=== PATIENT | female | born 1995 | race Caucasian/White ===

== ENCOUNTER 2017-11-21 06:38 | Emergency (ER) | payer OTHER ==
[2017-11-21 07:51] LABS: Absolute Lymphocytes (CBC) 2.1 K/uL (0.7-4.9); Absolute Monocytes 0.5 K/uL (0.1-1.3); Absolute Neutrophil 5.3 K/uL (1.8-8.0); Eosinophils % 5.8 % (0-4.4); Hematocrit 41.6 % (36.0-45.0); Lymphocytes % 24.7 % (15.3-44.8); MCV 84.4 fL (80-100); MPV 8.7 fL (7.6-11.3); Monocytes % 5.9 % (3.3-12.3); RBC Red Blood Cell Count 4.93 M/uL (3.86-4.86)
[2017-11-21 08:06] LABS: Urine Bacteria <20 /HPF (<20); Urine Culture Reflex Order NOT NEEDED; Urine RBC NONE SEEN /HPF (NONE SEEN)
[2017-11-21 08:11] LABS: BUN Blood Urea Nitrogen 9 mg/dL (6-20); Bicarbonate 25 mEq/L (21-31); Glucose Level 99 mg/dL (65-120); Potassium 3.7 mEq/L (3.6-5.0); Sodium Level 136 mEq/L (135-145)
[2017-11-21 10:10] LABS: Urine Blood NEGATIVE (NEG); Urine Glucose NEGATIVE (NEG); Urine Protein NEGATIVE (NEG); Urine Specific Gravity <1.005 (1.005-1.030)
[2017-11-21] MEDS ORDERED: KETOROLAC 30 MG/ML INJ ONE (11:13)
--- NOTE | 2017-11-21 11:28 | RAD REPORT ---
EXAM DESCRIPTION: US - Transvaginal Study Probe - 11/21/2017 10:08 am CLINICAL HISTORY: Pelvic pain, abdominal pain Preliminary findings provided at the time of the study. COMPARISON: None. TECHNIQUE: Endovaginal sonography was performed. FINDINGS: No myometrial mass identifiable. Moderate amount of free fluid is present in the cul-de-sa c is well is adjacent to the right ovary. Nabothian cyst is present. Endometrium is heterogeneous but no discrete endometrial mass or polyp seen. The endometrium - myometrium interface is preserved. End ometrial stripe is 9 mm in thickness. No dominant solid or cystic right ovarian or right adnexal find ing. Largest cyst on the right is 9 mm. A 16 millimeter collapsed or involuting left ovarian cyst is present. IMPRESSION: Collapsed or involuting left ovarian cyst. No dominant solid or cystic ovarian or adnexa l finding. Moderate free fluid in the cul-de-sac. This is anechoic and not suspected to be hemorrhagic. Endometrial stripe is somewhat heterogeneous but no discrete mass or polyp identifiable.
--- NOTE | 2017-11-21 11:28 | RAD REPORT ---
EXAM DESCRIPTION: CT - Abdomen Pelvis W Contrast - 11/21/2017 10:43 am CLINICAL HISTORY: Abdominal pain with suprapubic pain since yesterday COMPARISON: October ultrasound TECHNIQUE: Computed axial tomography of the abdomen pelvis was obtained. 100 cc Isovue-300 was admin istered intravenously. Oral contrast was not requested which limits evaluation of bowel. All CT scans are performed using dose optimization technique as appropriate and may include automated exposure control or mA/KV adjustment according to patient size. FINDINGS: The liver, spleen, pancreas, adrenal and kidneys appear unremarkable. There is no evidence of diverticulitis. A 17 millimeter irregularly shaped right ovarian cyst is pres ent with a small to moderate amount of free fluid. IMPRESSION: The 17 millimeter irregularly shaped right ovarian cyst with a small to moderate amount of free fluid probably has recently ruptured
--- NOTE | 2017-11-21 11:33 | ER ---
Nurse's Notes [facility] Name: Chitra Ramírez Age: 22 yrs Sex: Female : 1995 Arrival Date: 11/21/2017 Time: 06:42 Bed 13 Private MD: Diagnosis: Other ovarian cysts Presentation: 11/21 07:03 Presenting complaint: Patient states: suprapubic pain that began yesterday. Denies ss fever. Transition of care: patient was not received from another setting of care. Onset of symptoms was November 20, 2017. Initial Sepsis Screen: Does the patient meet any 2 criteria? No. Patient's initial sepsis screen is negative. Does the patient have a suspected source of infection? No. Patient's initial sepsis screen is negative. Care prior to arrival: None. 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 - Social history:: Smoking status: Patient/guardian denies using tobacco. Screenin:30 Abuse screen: Denies threats or abuse. Denies injuries from another. Nutritional jl7 screening: No deficits noted. Tuberculosis screening: No symptoms or risk factors identified. Fall Risk IV access (20 points). Total Car[place]illo Fall Scale indicates No Risk (0-24 pts). Assessment: 07:30 General: Appears in no apparent distress. uncomfortable, Behavior is calm, cooperative, jl7 appropriate for age. Pain: Complains of pain in suprapubic area Pain currently is 3 out of 10 on a pain scale. at worst was 8 out of 10 on a pain scale. Quality of pain is described as pressure, Pain began 1 day ago. Is intermittent, Alleviated by rest, Aggravated by increased activity, repositioning. Neuro: Level of Consciousness is awake, alert, obeys commands. Cardiovascular: Patient's skin is warm and dry. Respiratory: Airway is patent Respiratory effort is even, unlabored, Respiratory pattern is regular, symmetrical. GI: No signs and/or symptoms were reported involving the gastrointestinal system. : Urine is clear, Reports pelvic pain, "I get a little relief right after I pee then the pain comes back.". EENT: No signs and/or symptoms were reported regarding the EENT system. Derm: Skin is pink, warm \\T\\ dry. Musculoskeletal: No signs and/or symptoms reported regarding the musculoskeletal system. 08:34 Reassessment: No changes from previously documented assessment. Patient and/or family jl7 updated on plan of care and expected duration. Pain level reassessed. Patient is alert, oriented x 3, equal unlabored respirations, skin warm/dry/pink. 09:30 Reassessment: Patient and/or family updated on plan of care and expected duration. Pain jl7 level reassessed. Patient is alert, oriented x 3, equal unlabored respirations, skin warm/dry/pink. 10:30 Reassessment: Patient and/or family updated on plan of care and expected duration. Pain jl7 level reassessed. Patient is alert, oriented x 3, equal unlabored respirations, skin warm/dry/pink. 11:30 Reassessment: Patient and/or family updated on plan of care and expected duration. Pain jl7 level reassessed. Patient is alert, oriented x 3, equal unlabored respirations, skin warm/dry/pink. Patient states feeling better. Vital Signs: 07:04 BP 143 / 93; Pulse 87; Resp 15; Temp 98.7(O); Pulse Ox 99% on R/A; Weight 83.91 kg; Height 5 ft. 6 in. (167.64 cm); Pain 4/10; 07:51 BP 117 / 85; Pulse 82; Resp 16; Pulse Ox 99% on R/A; 5 08:30 BP 111 / 68; Pulse 69; Resp 16; Pulse Ox 100% ; Pain 3/10; jl7 09:00 BP 109 / 67; Pulse 67; Resp 16; Pulse Ox 99% ; jl7 10:00 BP 110 / 79; Pulse 74; Resp 16; Pulse Ox 100% ; jl7 11:05 BP 122 / 62; Pulse 78; Resp 16 S; Pulse Ox 100% on R/A; jl7 07:04 Body Mass Index 29.86 (83.91 kg, 167.64 cm) ED Course: 06:42 Patient arrived in ED. al2 06:58 Tonya Meraz FNP-C is [facility]. kb 06:58 Boni Martinez MD is Attending Physician. kb 07:03 Triage completed. ss 07:04 Arm band placed on right wrist. ss 07:25 Elizabeth Polk, CONSTANCE is Primary Nurse. jl7 07:41 Initial lab(s) drawn, by ga, sent to lab. Urine collected: clean catch specimen, clear. mh5 Inserted saline lock: 20 gauge in right antecubital area, using aseptic technique. Blood collected. 07:42 Patient has correct armband on for positive identification. Placed in gown. Bed in low mh5 position. Side rails up X 1. Adult w/ patient. Warm blanket given. Pulse ox on. NIBP on. 07:42 Test Serum, Qualitat Sent. mh5 07:42 Basic Metabolic Panel Sent. mh5 07:42 CBC with Automated Diff Sent. mh5 07:42 Urine Microscopic Only Sent. mh5 07:43 Urine --Ancillary (enter results) Sent. mh5 07:43 Urine Dipstick--Ancillary (enter results) Sent. mh5 07:43 Test, Serum Sent. mh5 07:43 Basic Metabolic Panel Sent. mh5 07:43 CBC with Diff Sent. mh5 07:58 Urine Microscopic Only Sent. mh5 07:58 Test Serum, Qualitat Sent. mh5 07:59 Basic Metabolic Panel Sent. mh5 09:40 Patient taken to ultrasound. aa4 09:51 US Transvaginal Study (Probe) In Process Unspecified. EDMS 09:57 Patient moved back from ultrasound. aa4 10:43 CT Abd/Pelvis - W/Contrast In Process Unspecified. EDMS 12:08 No provider procedures requiring assistance completed. IV discontinued, intact, jl7 bleeding controlled, No redness/swelling at site. Pressure dressing applied. Administered Medications: 11:21 Drug: TORadol 30 mg Route: IVP; Site: right antecubital; jl7 11:35 Follow up: Response: No adverse reaction jl7 Outcome: 11:33 Discharge ordered by . kb 12:08 Discharged to home ambulatory. jl7 12:08 Condition: stable 12:08 Discharge instructions given to patient, Instructed on discharge instructions, follow up and referral plans. medication usage, Demonstrated understanding of instructions, follow-up care, medications, Prescriptions given X 1. 12:09 Patient left the ED. jl7 Signatures: Dispatcher [employer] EDMS Tonya Meraz, ZOO CARETAKER-C ZOO CARETAKER-Hailey Somers aa4 Lorena Tavarez, RN RN Steph Sandy Elizabeth Batista RN RN jl7 Ariela Miguel
--- NOTE | 2017-11-21 11:34 | EDPHYS ---
Physician Documentation [facility] Name: Chitra Ramírez Age: 22 yrs Sex: Female : 1995 Arrival Date: 11/21/2017 Time: 06:42 Bed 13 Private MD: ED Physician Boni Martinez HPI: 11/21 07:48 This 22 yrs old Female presents to ER via Ambulatory with complaints of kb Pelvic Problem. 07:48 The patient presents with pelvic pain, that is located in/on the suprapubic area, the kb pain is described as moderate. Onset: The symptoms/episode began/occurred this morning. Modifying factors: The symptoms are alleviated by remaining still, the symptoms are aggravated by movement, pressure. Associated signs and symptoms: The patient has no apparent associated signs or symptoms. Severity of symptoms: At their worst the symptoms were moderate, in the emergency department the symptoms are unchanged. The patient has not experienced similar symptoms in the past. The patient has not recently seen a physician. Pt reports pelvic pain that started this morning, worse with movement. Denies urinary symptoms, vaginal discharge/bleeding. States she took out her own IUD a couple of months ago, is not on any control at this time. LMP was this month and normal. . 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 - Social history:: Smoking status: Patient/guardian denies using tobacco. ROS: 07:37 Constitutional: Negative for fever, chills, and weight loss, Cardiovascular: Negative kb for chest pain, palpitations, and edema, Respiratory: Negative for shortness of breath, cough, wheezing, and pleuritic chest pain, Abdomen/GI: Negative for abdominal pain, nausea, vomiting, diarrhea, and constipation, MS/Extremity: Negative for injury and deformity, Skin: Negative for injury, rash, and discoloration, Neuro: Negative for headache, weakness, numbness, tingling, and seizure. 07:37 : Positive for pelvic pain. Exam: 07:37 Constitutional: This is a well developed, well nourished patient who is awake, alert, kb and in no acute distress. Head/Face: Normocephalic, atraumatic. Chest/axilla: Normal chest wall appearance and motion. Nontender with no deformity. No lesions are appreciated. Cardiovascular: Regular rate and rhythm with a normal S1 and S2. No gallops, murmurs, or rubs. Normal PMI, no JVD. No pulse deficits. Respiratory: Lungs have equal breath sounds bilaterally, clear to auscultation and percussion. No rales, rhonchi or wheezes noted. No increased work of breathing, no retractions or nasal flaring. Back: No spinal tenderness. No costovertebral tenderness. Full range of motion. Skin: Warm, dry with normal turgor. Normal color with no rashes, no lesions, and no evidence of cellulitis. MS/ Extremity: Pulses equal, no cyanosis. Neurovascular intact. Full, normal range of motion. Neuro: Awake and alert, GCS 15, oriented to person, place, time, and situation. Cranial nerves II-XII grossly intact. Motor strength 5/5 in all extremities. Sensory grossly intact. Cerebellar exam normal. Normal gait. 07:37 Abdomen/GI: Inspection: abdomen appears normal, Bowel sounds: normal, in all quadrants, Palpation: soft, in all quadrants, nontender, in the right upper quadrant and left upper quadrant, mild abdominal tenderness, in the right lower quadrant and left lower quadrant, moderate abdominal tenderness, in the suprapubic area. Vital Signs: 07:04 BP 143 / 93; Pulse 87; Resp 15; Temp 98.7(O); Pulse Ox 99% on R/A; Weight 83.91 kg; Height 5 ft. 6 in. (167.64 cm); Pain 4/10; 07:51 BP 117 / 85; Pulse 82; Resp 16; Pulse Ox 99% on R/A; 5 08:30 BP 111 / 68; Pulse 69; Resp 16; Pulse Ox 100% ; Pain 3/10; jl7 09:00 BP 109 / 67; Pulse 67; Resp 16; Pulse Ox 99% ; jl7 10:00 BP 110 / 79; Pulse 74; Resp 16; Pulse Ox 100% ; jl7 11:05 BP 122 / 62; Pulse 78; Resp 16 S; Pulse Ox 100% on R/A; jl7 07:04 Body Mass Index 29.86 (83.91 kg, 167.64 cm) ss MDM: 07:09 Patient medically screened. kb 07:48 Data interpreted: Pulse oximetry: on room air is 99 %. Interpretation: normal. kb 07:48 Data reviewed: vital signs, nurses notes. kb 11:33 Counseling: I had a detailed discussion with the patient and/or guardian regarding: the kb historical points, exam findings, and any diagnostic results supporting the discharge/admit diagnosis, lab results, radiology results, the need for outpatient follow up, an OB/Gyne specialist, to return to the emergency department if symptoms worsen or persist or if there are any questions or concerns that arise at home. 11/21 07:20 Order name: Urine Dipstick--Ancillary (enter results); Complete Time: 10:20 mw2 11/21 07:20 Order name: Urine --Ancillary (enter results); Complete Time: 10:20 mw2 11/21 07:23 Order name: CBC with Diff 11/21 07:23 Order name: Basic Metabolic Panel 11/21 07:23 Order name: Test, Serum kb 11/21 07:23 Order name: Urine Microscopic Only; Complete Time: 08:11 kb 11/21 07:23 Order name: IV Start; Complete Time: 07:43 kb 11/21 07:23 Order name: CBC with Automated Diff; Complete Time: 07:59 EDMS 11/21 07:23 Order name: Basic Metabolic Panel; Complete Time: 09:09 EDMS 11/21 07:23 Order name: Test Serum, Qualitat; Complete Time: 09:09 EDMS 11/21 09:10 Order name: US Transvaginal Study (Probe); Complete Time: 11:29 kb 11/21 10:09 Order name: CT Abd/Pelvis - W/Contrast; Complete Time: 11:29 kb Administered Medications: 11:21 Drug: TORadol 30 mg Route: IVP; Site: right antecubital; jl7 11:35 Follow up: Response: No adverse reaction jl7 Disposition: 16:36 Co-signature as Attending Physician, Boni Martinez MD. rn Disposition: 11/21/17 11:33 Discharged to Home. Impression: Other ovarian cysts. - Condition is Stable. - Discharge Instructions: Ovarian Cyst, [id number]. - Prescriptions for Diclofenac Sodium 75 mg Oral Tablet, Delayed Release (E.C.) - take 1 tablet by ORAL route 2 times per day As needed; 30 tablet. - Medication Reconciliation Form, Thank You Letter, Antibiotic Education, Prescription Opioid Use form. - Follow up: Emergency Department; When: As needed; Reason: Worsening of condition. Follow up: Private Physician; When: 2 - 3 days; Reason: Recheck today's complaints, Continuance of care, Re-evaluation by your physician. Signatures: Dispatcher [employer] EDTonya Nevarez, CLINICAL PHARMACOLOGIST-C CLINICAL PHARMACOLOGIST-Boni Devine MD MD rn Corby, Lorena RN RN ss Elizabeth Polk RN RN jl7
== END 2017-11-21 12:09 | disposition home or self-care (01) ==
LOC: ER 06:38
DX: N83.299 Other ovarian cyst, unspecified side (principal)
CPT/HCPCS: 36415; 74177; 76830; 80048; 81003; 81015; 81025; 84703; 85025; 96374; 99284; Q9967

== ENCOUNTER 2017-12-25 10:30 | Emergency (ER) | payer OTHER, SELFPAY ==
--- NOTE | 2017-12-25 11:16 | ER ---
Nurse's Notes [facility] Name: Chitra Ramírez Age: 22 yrs Sex: Female : 1995 Arrival Date: 12/25/2017 Time: 10:33 Bed 23 Private MD: None, None Diagnosis: Cough;Acute upper respiratory infection, unspecified Presentation: 12/25 10:36 Presenting complaint: Patient states: Nonproductive cough, pain with cough, chills, ss decreased appetite, and fever x 4 days. TMAX 102.3. Transition of care: patient was not received from another setting of care. Onset of symptoms is unknown. Care prior to arrival: None. 10:36 Method Of Arrival: Ambulatory ss 10:36 Acuity: ORALIA 3 ss 11:35 Risk Assessment: Do you want to hurt yourself or someone else? Patient reports no aj1 desire to harm self or others. Initial Sepsis Screen: Does the patient meet any 2 criteria? No. Patient's initial sepsis screen is negative. Does the patient have a suspected source of infection? No. Patient's initial sepsis screen is negative. 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 - Ebola Screening: : No symptoms or risks identified at this time. Screenin:55 Abuse screen: Denies threats or abuse. Denies injuries from another. Nutritional aj1 screening: No deficits noted. Tuberculosis screening: No symptoms or risk factors identified. Assessment: 10:55 General: Appears in no apparent distress. comfortable, Behavior is calm, cooperative, aj1 appropriate for age. Pain: Denies pain. Neuro: Level of Consciousness is awake, alert, obeys commands, Oriented to person, place, time, situation, Speech is normal, Facial symmetry appears normal. Cardiovascular: Heart tones S1 S2 present Patient's skin is warm and dry. Respiratory: Reports cough that is persistent for the past 3 days "feels like rubbing in my chest when I try to breathe" Airway is patent Respiratory effort is even, unlabored, Respiratory pattern is regular, symmetrical, Breath sounds are clear bilaterally. GI: No signs and/or symptoms were reported involving the gastrointestinal system. Patient currently denies diarrhea, nausea, vomiting. : No signs and/or symptoms were reported regarding the genitourinary system. EENT: No signs and/or symptoms were reported regarding the EENT system. Denies nasal congestion, nasal discharge. Derm: No signs and/or symptoms reported regarding the dermatologic system. Skin is pink, warm \\T\\ dry. normal. Musculoskeletal: No signs and/or symptoms reported regarding the musculoskeletal system. Circulation, motion, and sensation intact. Vital Signs: 10:37 BP 136 / 86; Pulse 122; Resp 18; Temp 98.9; Pulse Ox 96% on R/A; Weight 88.45 kg; ss Height 5 ft. 6 in. (167.64 cm); Pain 2/10; 11:34 Pulse 106; Resp 16; Pulse Ox 98% on R/A; aj1 10:37 Body Mass Index 31.47 (88.45 kg, 167.64 cm) ED Course: 10:33 Patient arrived in ED. sb2 10:33 None, None is Private Physician. sb2 10:37 Triage completed. 10:38 Arm band placed on left wrist. 10:43 Pérez Rosales MD is Attending Physician. [facility] 10:54 Angelina Hernandez, RN is Primary Nurse. aj1 10:55 Patient has correct armband on for positive identification. Bed in low position. Call aj1 light in reach. Side rails up X 1. 10:55 No provider procedures requiring assistance completed. aj1 11:34 Patient did not have IV access during this emergency room visit. aj1 Administered Medications: 11:34 Drug: Zithromax 500 mg Route: PO; aj1 11:35 Follow up: Response: No adverse reaction aj1 Outcome: 11:15 Discharge ordered by . [facility] 11:34 Discharged to home ambulatory. aj1 11:34 Condition: good 11:34 Discharge instructions given to patient, Instructed on discharge instructions, follow up and referral plans. no drinking with medication, no driving heavy equipment, medication usage, Demonstrated understanding of instructions, follow-up care, medications, Prescriptions given X 2. 11:35 Patient left the ED. aj1 Signatures: Angelina Hernandez, RN RN aj1 Pérez Rosales MD MD cha Smirch, Shelby, RN RN Ashley Mahan RN RN hb Billeau, Sheri sb2 Corrections: (The following items were deleted from the chart) 11:11 10:46 11.1 kg Measured; BMI: 3.95; hb dm5
--- NOTE | 2017-12-25 11:16 | EDPHYS ---
Physician Documentation [facility] Name: Chitra Ramírez Age: 22 yrs Sex: Female : 1995 Arrival Date: 12/25/2017 Time: 10:33 Bed 23 Private MD: None, None ED Physician Pérez Rosales HPI: 12/25 11:13 This 22 yrs old Female presents to ER via Ambulatory with complaints of Flu marivel Symptoms. 11:13 The patient or guardian reports airway noise, cough. Onset: The symptoms/episode marivel began/occurred 2 day(s) ago. Severity of symptoms: At their worst the symptoms were mild, moderate, in the emergency department the symptoms are unchanged. Modifying factors: The symptoms are alleviated by nothing, the symptoms are aggravated by animal dander. Associated signs and symptoms: Pertinent positives: sore throat. The patient has experienced similar episodes in the past, a few times. 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 - Ebola Screening: : No symptoms or risks identified at this time. ROS: 11:13 Constitutional: Negative for fever, chills, and weight loss, Eyes: Negative for injury, marivel pain, redness, and discharge, ENT: Negative for injury, pain, and discharge, Neck: Negative for injury, pain, and swelling, Cardiovascular: Negative for chest pain, palpitations, and edema, Abdomen/GI: Negative for abdominal pain, nausea, vomiting, diarrhea, and constipation, Back: Negative for injury and pain, : Negative for injury, bleeding, discharge, and swelling, MS/Extremity: Negative for injury and deformity, Skin: Negative for injury, rash, and discoloration, Neuro: Negative for headache, weakness, numbness, tingling, and seizure, Psych: Negative for depression, anxiety, suicide ideation, homicidal ideation, and hallucinations, Allergy/Immunology: Negative for hives, rash, and allergies, Endocrine: Negative for neck swelling, polydipsia, polyuria, polyphagia, and marked weight changes, Hematologic/Lymphatic: Negative for swollen nodes, abnormal bleeding, and unusual bruising. 11:13 Cardiovascular: Positive for cough. Exam: 11:13 Constitutional: This is a well developed, well nourished patient who is awake, alert, marivel and in no acute distress. Head/Face: Normocephalic, atraumatic. Eyes: Pupils equal round and reactive to light, extra-ocular motions intact. Lids and lashes normal. Conjunctiva and sclera are non-icteric and not injected. Cornea within normal limits. Periorbital areas with no swelling, redness, or edema. ENT: Nares patent. No nasal discharge, no septal abnormalities noted. Tympanic membranes are normal and external auditory canals are clear. Oropharynx with no redness, swelling, or masses, exudates, or evidence of obstruction, uvula midline. Mucous membranes moist. Neck: Trachea midline, no thyromegaly or masses palpated, and no cervical lymphadenopathy. Supple, full range of motion without nuchal rigidity, or vertebral point tenderness. No Meningismus. Chest/axilla: Normal chest wall appearance and motion. Nontender with no deformity. No lesions are appreciated. Cardiovascular: Regular rate and rhythm with a normal S1 and S2. No gallops, murmurs, or rubs. Normal PMI, no JVD. No pulse deficits. Respiratory: Lungs have equal breath sounds bilaterally, clear to auscultation and percussion. No rales, rhonchi or wheezes noted. No increased work of breathing, no retractions or nasal flaring. Abdomen/GI: Soft, non-tender, with normal bowel sounds. No distension or tympany. No guarding or rebound. No evidence of tenderness throughout. Back: No spinal tenderness. No costovertebral tenderness. Full range of motion. Skin: Warm, dry with normal turgor. Normal color with no rashes, no lesions, and no evidence of cellulitis. MS/ Extremity: Pulses equal, no cyanosis. Neurovascular intact. Full, normal range of motion. Neuro: Awake and alert, GCS 15, oriented to person, place, time, and situation. Cranial nerves II-XII grossly intact. Motor strength 5/5 in all extremities. Sensory grossly intact. Cerebellar exam normal. Normal gait. Psych: Awake, alert, with orientation to person, place and time. Behavior, mood, and affect are within normal limits. Vital Signs: 10:37 BP 136 / 86; Pulse 122; Resp 18; Temp 98.9; Pulse Ox 96% on R/A; Weight 88.45 kg; ss Height 5 ft. 6 in. (167.64 cm); Pain 2/10; 11:34 Pulse 106; Resp 16; Pulse Ox 98% on R/A; aj1 10:37 Body Mass Index 31.47 (88.45 kg, 167.64 cm) ss MDM: 10:43 Patient medically screened. [facility] 11:16 Data reviewed: vital signs, nurses notes. [facility] Administered Medications: 11:34 Drug: Zithromax 500 mg Route: PO; [facility] 11:35 Follow up: Response: No adverse reaction aj1 Disposition: 12/25/17 11:15 Discharged to Home. Impression: Cough, Acute upper respiratory infection, unspecified. - Condition is Stable. - Discharge Instructions: Cool Mist Vaporizers, Cough, Adult, [id number], Cough, Adult. - Prescriptions for Cheratussin AC 10- 100 mg/5 mL Oral liquid - take 10 milliliter by ORAL route every 4 hours; 150 milliliter. Zithromax Z- Pranay 250 mg Oral Tablet - take 1 tablet by ORAL route as directed for 5 days Day 1 - take two (2) tablets one time. Day 2, 3, 4 , 5 take one (1) tablet once daily.; 6 tablet. - Medication Reconciliation Form, Thank You Letter, Antibiotic Education, Prescription Opioid Use form. - Follow up: Private Physician; When: 2 - 3 days; Reason: Recheck today's complaints, Continuance of care, Re-evaluation by your physician. - Problem is new. - Symptoms have improved. Signatures: Angelina Hernandez RN RN aj1 Pérez Rosales MD MD cha Smirch, Shelby RN RN Corrections: (The following items were deleted from the chart) 11:35 11:15 12/25/2017 11:15 Discharged to Home. Impression: Cough; Acute upper respiratory aj1 infection, unspecified. Condition is Stable. Forms are Medication Reconciliation Form, Thank You Letter, Antibiotic Education, Prescription Opioid Use. Follow up: Private Physician; When: 2 - 3 days; Reason: Recheck today's complaints, Continuance of care, Re-evaluation by your physician. Problem is new. Symptoms have improved. [facility]
[2017-12-25] MEDS ORDERED: AZITHROMYCIN 250 MG TAB ONE (11:22)
== END 2017-12-25 11:35 | disposition home or self-care (01) ==
LOC: ER 10:30
DX: J06.9 Acute upper respiratory infection, unspecified (principal)
CPT/HCPCS: 99283

== ENCOUNTER 2018-03-12 22:24 | Emergency (ER) | payer OTHER, SELFPAY ==
[2018-03-12 23:16] LABS: Absolute Lymphocytes (CBC) 2.3 K/uL (0.7-4.9); Absolute Monocytes 0.5 K/uL (0.1-1.3); Absolute Neutrophil 8.2 K/uL (1.8-8.0); Basophils % 0.6 % (0-1.3); Eosinophils % 2.7 % (0-4.4); MCH 29.3 pg (27.0-35.0); MCV 85.4 fL (80-100); MPV 8.6 fL (7.6-11.3); Monocytes % 4.8 % (3.3-12.3); RBC Red Blood Cell Count 4.45 M/uL (3.86-4.86)
[2018-03-12 23:36] LABS: Urine Blood NEGATIVE (NEG); Urine Glucose NEGATIVE (NEG); Urine Protein NEGATIVE (NEG); Urine Specific Gravity 1.025 (1.005-1.030)
[2018-03-12 23:53] LABS: BUN Blood Urea Nitrogen 8 mg/dL (7-18); Bicarbonate 26 mmol/L (21-32); Glucose Level 99 mg/dL (74-106); HCG, Quantitative 50261 mIU/mL (1-3); Potassium 3.2 mmol/L (3.5-5.1); Sodium Level 138 mmol/L (136-145)
[2018-03-13] MEDS ORDERED: POTASSIUM 25 MEQ EFFERV TAB ONE (00:11)
--- NOTE | 2018-03-13 00:14 | EDPHYS ---
Physician Documentation [facility] Name: Chitra Ramírez Age: 23 yrs Sex: Female : 1995 Arrival Date: 03/12/2018 Time: 22:27 Bed 15 Private MD: ED Physician Agustin Henning HPI: 03/13 00:19 This 23 yrs old Female presents to ER via Ambulatory with complaints of snw Vaginal Bleeding, + Preg <12wks, Abdominal Cramping. 00:19 The patient presents with lower abdominal cramping, about 7 wks . Onset: The snw symptoms/episode began/occurred suddenly, 1 day(s) ago. Modifying factors: The symptoms are alleviated by nothing, the symptoms are aggravated by nothing. Associated signs and symptoms: The patient has no apparent associated signs or symptoms. Severity of symptoms: At their worst the symptoms were mild, moderate. 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 - Social history:: Smoking status: Patient/guardian denies using tobacco. - Ebola Screening: : Patient negative for fever greater than or equal to 101.5 degrees Fahrenheit, and additional compatible Ebola Virus Disease symptoms Patient denies exposure to infectious person Patient denies travel to an Ebola-affected area in the 21 days before illness onset No symptoms or risks identified at this time. ROS: 03/13 00:18 Constitutional: Negative for fever, chills, and weight loss, Eyes: Negative for injury, snw pain, redness, and discharge, ENT: Negative for injury, pain, and discharge, Neck: Negative for injury, pain, and swelling, Cardiovascular: Negative for chest pain, palpitations, and edema, Respiratory: Negative for shortness of breath, cough, wheezing, and pleuritic chest pain, Back: Negative for injury and pain, : Negative for injury, bleeding, discharge, and swelling, MS/Extremity: Negative for injury and deformity, Skin: Negative for injury, rash, and discoloration, Neuro: Negative for headache, weakness, numbness, tingling, and seizure. Abdomen/GI: Positive for abdominal cramps, of the suprapubic area. Exam: 00:16 Constitutional: This is a well developed, well nourished patient who is awake, alert, snw and in no acute distress. Head/Face: Normocephalic, atraumatic. Eyes: Pupils equal round and reactive to light, extra-ocular motions intact. Lids and lashes normal. Conjunctiva and sclera are non-icteric and not injected. Cornea within normal limits. Periorbital areas with no swelling, redness, or edema. ENT: Nares patent. No nasal discharge, no septal abnormalities noted. Tympanic membranes are normal and external auditory canals are clear. Oropharynx with no redness, swelling, or masses, exudates, or evidence of obstruction, uvula midline. Mucous membranes moist. Neck: Trachea midline, no thyromegaly or masses palpated, and no cervical lymphadenopathy. Supple, full range of motion without nuchal rigidity, or vertebral point tenderness. No Meningismus. Chest/axilla: Normal chest wall appearance and motion. Nontender with no deformity. No lesions are appreciated. Cardiovascular: Regular rate and rhythm with a normal S1 and S2. No gallops, murmurs, or rubs. Normal PMI, no JVD. No pulse deficits. Respiratory: Lungs have equal breath sounds bilaterally, clear to auscultation and percussion. No rales, rhonchi or wheezes noted. No increased work of breathing, no retractions or nasal flaring. Back: No spinal tenderness. No costovertebral tenderness. Full range of motion. Skin: Warm, dry with normal turgor. Normal color with no rashes, no lesions, and no evidence of cellulitis. MS/ Extremity: Pulses equal, no cyanosis. Neurovascular intact. Full, normal range of motion. Neuro: Awake and alert, GCS 15, oriented to person, place, time, and situation. Cranial nerves II-XII grossly intact. Motor strength 5/5 in all extremities. Sensory grossly intact. Cerebellar exam normal. Normal gait. 00:16 Abdomen/GI: Inspection: abdomen appears normal, Bowel sounds: normal, Palpation: mild abdominal tenderness, in the suprapubic area. Vital Signs: 03/12 22:34 BP 125 / 66; Pulse 95; Resp 16; Temp 98.1; Pulse Ox 100% ; Weight 88.45 kg; Height 5 bp ft. 6 in. (167.64 cm); 23:34 BP 105 / 62; Pulse 87; Resp 18; Pulse Ox 99% ; Pain 3/10; ea 03/13 00:21 BP 107 / 66; Pulse 80; Resp 18; Pulse Ox 98% on R/A; Pain 2/10; ea 03/12 22:34 Body Mass Index 31.47 (88.45 kg, 167.64 cm) bp MDM: 03/12 22:53 Patient medically screened. snw 03/13 00:18 Data reviewed: vital signs, nurses notes. Data interpreted: Pulse oximetry: on room air snw is 99 %. Interpretation: normal. Counseling: I had a detailed discussion with the patient and/or guardian regarding: the historical points, exam findings, and any diagnostic results supporting the discharge/admit diagnosis, lab results, radiology results, the need for outpatient follow up, to return to the emergency department if symptoms worsen or persist or if there are any questions or concerns that arise at home. Special discussion: Based on the patient's Hx, exam, and Dx evaluation, there is no indication for emergent surgery or inpatient Tx. It is understood by the patient/guardian that if the Sx's persist or worsen they need to return immediately for re-evaluation. Based on the history and exam findings, there is no indication for further emergent testing or inpatient evaluation. I discussed with the patient/guardian the need to see the OB Gyne specialist for further evaluation of the symptoms. I discussed with the patient/guardian the need to see the primary care provider for further evaluation of the symptoms. 03/12 22:33 Order name: Quantitative Hcg; Complete Time: 23:57 snw 03/12 22:33 Order name: Abo/rh Typing; Complete Time: 23:57 snw 03/12 22:33 Order name: Basic Metabolic Panel; Complete Time: 23:57 snw 03/12 22:33 Order name: CBC with Diff; Complete Time: 23:41 snw 03/12 22:49 Order name: Urine Dipstick--Ancillary (enter results); Complete Time: 23:41 rg2 03/12 22:49 Order name: Urine --Ancillary (enter results); Complete Time: 23:41 2 03/12 22:33 Order name: US Transvaginal Ob snw 03/12 22:33 Order name: Urine Test (obtain specimen); Complete Time: 22:45 snw 03/12 22:33 Order name: IV Saline Lock; Complete Time: 23:07 snw 03/12 22:33 Order name: Labs collected and sent; Complete Time: 23:07 snw 03/12 22:33 Order name: NPO; Complete Time: 22:38 snw 03/12 22:33 Order name: Urine Dipstick-Ancillary (obtain specimen); Complete Time: 22:45 snw Administered Medications: 00:09 Drug: Potassium Effervescent Tablet 50 mEq Route: PO; ea 00:22 Follow up: Response: No adverse reaction ea Point of Care Testing: Urine : 00:04 hCG Reading: Positive; ea Disposition: 00:24 Co-signature as Attending Physician, Agustin Henning MD. [email or web address] Disposition: 03/13/18 00:13 Discharged to Home. Impression: Threatened , Hypokalemia. - Condition is Stable. - Discharge Instructions: Abdominal Pain During , Potassium Content of Foods, Threatened Miscarriage, First Trimester of , Hypokalemia. - Prescriptions for Vitamin 27- 0.8 mg Oral Tablet - take 1 tablet by ORAL route once daily; 60 tablet. - Medication Reconciliation Form, Thank You Letter, Antibiotic Education, Prescription Opioid Use form. - Follow up: Private Physician; When: 1 week; Reason: Recheck today's complaints, Continuance of care, Re-evaluation by your physician. Follow up: Emergency Department; When: As needed; Reason: Worsening of condition. Signatures: Dispatcher [employer] Agustin Zeng MD MD pkPaz Melissa, CAR PUSHER-C CAR PUSHER-Csnw Deana Rodegrs, CONSTANCE RN Sg Rokc RN RN bp Corrections: (The following items were deleted from the chart) 00:22 00:13 03/13/2018 00:13 Discharged to Home. Impression: Threatened ; ea Hypokalemia. Condition is Stable. Discharge Instructions: Abdominal Pain During , Potassium Content of Foods, Threatened Miscarriage, First Trimester of , Hypokalemia. Prescriptions for Vitamin 27-0.8 mg Oral Tablet - take 1 tablet by ORAL route once daily; 60 tablet. and Forms are Medication Reconciliation Form, Thank You Letter, Antibiotic Education, Prescription Opioid Use. Follow up: Private Physician; When: 1 week; Reason: Recheck today's complaints, Continuance of care, Re-evaluation by your physician. Follow up: Emergency Department; When: As needed; Reason: Worsening of condition. snw
--- NOTE | 2018-03-13 00:14 | ER ---
Nurse's Notes [facility] Name: Chitra Ramírez Age: 23 yrs Sex: Female : 1995 Arrival Date: 03/12/2018 Time: 22:27 Bed 15 Private MD: Diagnosis: Threatened ;Hypokalemia Presentation: 03/12 22:32 Presenting complaint: Patient states: I'M 7 WEEKS AND I'VE BEEN HAVING LOWER bp ABDOMEN CRAMPING. Transition of care: patient was not received from another setting of care. Onset of symptoms was March 05, 2018. Risk Assessment: Do you want to hurt yourself or someone else? Patient reports no desire to harm self or others. Initial Sepsis Screen: Does the patient meet any 2 criteria? No. Patient's initial sepsis screen is negative. Does the patient have a suspected source of infection? No. Patient's initial sepsis screen is negative. Care prior to arrival: None. 22:32 Method Of Arrival: Ambulatory bp 22:32 Acuity: ORALIA 3 bp Triage Assessment: 22:34 General: Appears in no apparent distress. comfortable, Behavior is calm, cooperative, bp appropriate for age. Pain: Complains of pain in pelvis. : Reports vaginal bleeding that is spotty. 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 - Social history:: Smoking status: Patient/guardian denies using tobacco. - Ebola Screening: : Patient negative for fever greater than or equal to 101.5 degrees Fahrenheit, and additional compatible Ebola Virus Disease symptoms Patient denies exposure to infectious person Patient denies travel to an Ebola-affected area in the 21 days before illness onset No symptoms or risks identified at this time. Screenin:15 Abuse screen: Denies threats or abuse. Nutritional screening: No deficits noted. ea Tuberculosis screening: No symptoms or risk factors identified. Fall Risk None identified. Assessment: 23:21 General: Appears in no apparent distress. Behavior is calm, cooperative, appropriate ea for age. 23:21 Obstetrical Assessment: General assessment: awake and alert, skin warm and dry, ea respirations even and unlabored. Pain: Complains of pain in pelvis Pain does not radiate. Pain currently is 3 out of 10 on a pain scale. Quality of pain is described as crampy. Neuro: Level of Consciousness is awake, alert, obeys commands, Oriented to person, place, time. Cardiovascular: Heart tones S1 S2 present. Respiratory: Airway is patent Respiratory effort is even, unlabored, Respiratory pattern is regular, symmetrical. GI: Bowel sounds present X 4 quads. Derm: Skin is pink, warm \T\ dry. 03/13 00:08 Reassessment: Patient and/or family updated on plan of care and expected duration. Pain ea level reassessed. Patient is alert, oriented x 3, equal unlabored respirations, skin warm/dry/pink. 00:20 Reassessment: Patient and/or family updated on plan of care and expected duration. Pain ea level reassessed. Patient is alert, oriented x 3, equal unlabored respirations, skin warm/dry/pink. Discharge instructions given to patient, verbalized the understanding of instruction. Vital Signs: 03/12 22:34 BP 125 / 66; Pulse 95; Resp 16; Temp 98.1; Pulse Ox 100% ; Weight 88.45 kg; Height 5 bp ft. 6 in. (167.64 cm); 23:34 BP 105 / 62; Pulse 87; Resp 18; Pulse Ox 99% ; Pain 3/10; ea 03/13 00:21 BP 107 / 66; Pulse 80; Resp 18; Pulse Ox 98% on R/A; Pain 2/10; ea 03/12 22:34 Body Mass Index 31.47 (88.45 kg, 167.64 cm) bp ED Course: 03/12 22:27 Patient arrived in ED. am2 22:34 Triage completed. bp 22:34 Arm band placed on. bp 22:36 Paz Muse FNP-C is PHCP. snw 22:36 Agustin Henning MD is Attending Physician. snw 22:48 Deana Rodgers, CONSTANCE is Primary Nurse. ea 22:59 US Transvaginal Ob In Process Unspecified. EDMS 23:06 Inserted saline lock: 20 gauge in right antecubital area, using aseptic technique. mt Blood collected. 23:16 Patient has correct armband on for positive identification. Bed in low position. Call ea light in reach. 03/13 00:21 No provider procedures requiring assistance completed. IV discontinued, intact, ea bleeding controlled, No redness/swelling at site. Pressure dressing applied. Administered Medications: 00:09 Drug: Potassium Effervescent Tablet 50 mEq Route: PO; ea 00:22 Follow up: Response: No adverse reaction ea Point of Care Testing: Urine : 00:04 hCG Reading: Positive; ea Outcome: 00:13 Discharge ordered by . snw 00:21 Discharged to home ambulatory, with significant other. ea 00:21 Condition: improved 00:21 Discharge instructions given to patient, Instructed on discharge instructions, follow up and referral plans. medication usage, Demonstrated understanding of instructions, follow-up care, medications, Prescriptions given X 1. 00:22 Patient left the ED. ea Signatures: Dispatcher [employer] EDMN Paz Muse, MINESH-C MUSEUM SERVICE SCHEDULER-CsnHailey Salinas Moriah mt Antunez, Elena, RN RN Sg Rock, RN RN bp Corrections: (The following items were deleted from the chart) 03/12 23:22 23:15 General: Appears in no apparent distress. Behavior is calm, cooperative, ea appropriate for age, ea
--- NOTE | 2018-03-13 05:49 | RAD REPORT ---
EXAM DESCRIPTION: US - Transvaginal OB - 03/12/2018 10:59 pm CLINICAL HISTORY: with abdominal pain and vaginal bleeding COMPARISON: None. FINDINGS: The uterus measures 8 x 6 x 7 centimeters. A gestational sac is present within the endome trium. Within this is a yolk sac and pole with a crown-rump length 0.8 centimeters. Cardiac act ivity 141 beats per minute The ovaries are normal in size and echotexture. No significant free fluid is seen. IMPRESSION: Single live intrauterine with an estimated gestational age 6 weeks 6 days TIFFANIE 10/30/2018
== END 2018-03-13 00:22 | disposition home or self-care (01) ==
LOC: ER 22:24
DX: O20.0 Threatened abortion (principal); E87.6 Hypokalemia; Z3A.01 Less than 8 weeks gestation of pregnancy
CPT/HCPCS: 36415; 76817; 80048; 81003; 81025; 84702; 85025; 86900; 86901; 99284

== ENCOUNTER 2018-05-31 12:24 | Emergency (ER) | payer OTHER ==
[2018-05-31] MEDS ORDERED: NA CHLORIDE 0.9% 1,000 ML ONE (13:17)
[2018-05-31 13:29] LABS: Absolute Lymphocytes (CBC) 0.7 K/uL (0.7-4.9); Absolute Monocytes 0.4 K/uL (0.1-1.3); Absolute Neutrophil 4.8 K/uL (1.8-8.0); Basophils % 0.3 % (0-1.3); Eosinophils % 0.6 % (0-4.4); Hematocrit 37.2 % (36.0-45.0); Lymphocytes % 11.6 % (15.3-44.8); MPV 8.8 fL (7.6-11.3); Monocytes % 7.2 % (3.3-12.3); RBC Red Blood Cell Count 4.32 M/uL (3.86-4.86)
[2018-05-31 13:34] LABS: BUN Blood Urea Nitrogen 7 mg/dL (7-18); Bicarbonate 24 mmol/L (21-32); Glucose Level 96 mg/dL (74-106); Potassium 3.1 mmol/L (3.5-5.1); Sodium Level 136 mmol/L (136-145)
[2018-05-31] MEDS ORDERED: ONDANSETRON 4 MG/2 ML VIAL ONE (14:16)
[2018-05-31] MEDS ORDERED: POTASSIUM 25 MEQ EFFERV TAB ONE (15:02)
[2018-05-31 15:31] LABS: Urine Bacteria <20 /HPF (<20); Urine Culture Reflex Order NOT NEEDED; Urine RBC <5 /HPF (NONE SEEN)
--- NOTE | 2018-05-31 15:36 | ER ---
Nurse's Notes [facility] Name: Chitra Ramírez Age: 23 yrs Sex: Female : 1995 Arrival Date: 05/31/2018 Time: 12:27 Bed 23 Private MD: None, None Diagnosis: Diarrhea, unspecified;Nausea and vomiting Presentation: 05/31 12:32 Presenting complaint: Patient states: "The night before last I started getting nauseous aj1 and diarrhea. Even if I take a sip of water, my stomach starts gargling and I'm in the bathroom having diarrhea." Reports that she is 18 weeks , she is having dizziness upon standing, lower abdominal cramping, low grade fever. Denies vaginal bleeding. Transition of care: patient was not received from another setting of care. Onset of symptoms was May 29, 2018. Risk Assessment: Do you want to hurt yourself or someone else?. Initial Sepsis Screen: Does the patient meet any 2 criteria? HR > 90 bpm. Does the patient have a suspected source of infection? Yes: Acute abdominal pain. Care prior to arrival: None. 12:32 Method Of Arrival: Ambulatory aj1 12:32 Acuity: ORALIA 3 aj1 Triage Assessment: 12:35 General: Appears in no apparent distress. uncomfortable, Behavior is calm, cooperative, aj1 appropriate for age. Pain: Complains of pain in right lower quadrant and left lower quadrant Pain currently is 2 out of 10 on a pain scale. Quality of pain is described as crampy. Neuro: Level of Consciousness is awake, alert, obeys commands. Cardiovascular: Patient's skin is warm and dry. Respiratory: Airway is patent Respiratory effort is even, unlabored, Respiratory pattern is regular, symmetrical. GI: Reports cramping, diarrhea. : Denies vaginal bleeding. 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 - Social history:: Smoking status: Patient/guardian denies using tobacco. - Ebola Screening: : Patient denies travel to an Ebola-affected area in the 21 days before illness onset. Screenin:54 Abuse screen: Denies threats or abuse. Nutritional screening: No deficits noted. tw2 Tuberculosis screening: No symptoms or risk factors identified. Fall Risk None identified. Assessment: 12:50 Reassessment: pt was using the restroom in the lobby when name was called to come to tw2 exam room. 12:54 General: Appears in no apparent distress. Behavior is calm, cooperative, appropriate tw2 for age. Pain: Denies pain. Neuro: Level of Consciousness is awake, alert, obeys commands, Oriented to person, place, time, situation. Cardiovascular: Denies chest pain, shortness of breath, Heart tones S1 S2 Capillary refill < 3 seconds Patient's skin is warm and dry. Respiratory: Airway is patent Respiratory effort is even, unlabored, Respiratory pattern is regular, symmetrical, Breath sounds are clear bilaterally. GI: Abdomen is round Bowel sounds present X 4 quads. Reports diarrhea, nausea, vomiting. : No signs and/or symptoms were reported regarding the genitourinary system. EENT: No signs and/or symptoms were reported regarding the EENT system. Derm: No signs and/or symptoms reported regarding the dermatologic system. Musculoskeletal: Range of motion: intact in all extremities. 14:27 Reassessment: Patient appears in no apparent distress at this time. No changes from tw2 previously documented assessment. Patient and/or family updated on plan of care and expected duration. Pain level reassessed. Patient is alert, oriented x 3, equal unlabored respirations, skin warm/dry/pink. 15:22 Reassessment: Patient appears in no apparent distress at this time. No changes from tw2 previously documented assessment. Patient and/or family updated on plan of care and expected duration. Pain level reassessed. Patient is alert, oriented x 3, equal unlabored respirations, skin warm/dry/pink. 15:49 Reassessment: provider at bedside discussing poc and rx medication. tw2 Vital Signs: 12:35 BP 123 / 77; Pulse 108; Resp 20; Temp 97.2; Pulse Ox 98% on R/A; Weight 90.72 kg (R); aj1 Height 5 ft. 6 in. (167.64 cm); Pain 2/10; 14:27 BP 114 / 68; Pulse 84; Resp 17; Pulse Ox 100% on R/A; tw2 15:34 BP 101 / 68; Pulse 97; Resp 17; Pulse Ox 100% on R/A; tw2 12:35 Body Mass Index 32.28 (90.72 kg, 167.64 cm) aj1 Vitals: 13:33 Heart Tones 148 bpm. tw2 ED Course: 12:27 Patient arrived in ED. sb2 12:27 None, None is Private Physician. sb2 12:34 Triage completed. aj1 12:35 Arm band placed on Patient placed in waiting room, Patient notified of wait time. aj1 12:53 Adriana Wilcox, CONSTANCE is Primary Nurse. tw2 12:54 John Leon NP is PHCP. pm1 12:54 Bed in low position. Call light in reach. Adult w/ patient. Pulse ox on. NIBP on. Warm tw2 blanket given. 12:55 Boni Martinez MD is Attending Physician. pm1 13:06 Inserted saline lock: 22 gauge in right antecubital area, using aseptic technique. tw2 Blood collected. 15:54 No provider procedures requiring assistance completed. IV discontinued, intact, tw2 bleeding controlled, No redness/swelling at site. Pressure dressing applied. Administered Medications: 13:19 Drug: NS 0.9% 1000 ml Route: IV; Rate: 1000 ml; Site: right antecubital; tw2 14:27 Follow up: Response: No adverse reaction; IV Status: Completed infusion; IV Intake: tw2 1000ml 14:11 Drug: Zofran 4 mg Route: IVP; Site: right antecubital; tw2 14:52 Follow up: Response: No adverse reaction; Nausea is decreased tw2 15:05 Drug: Potassium Effervescent Tablet 50 mEq Route: PO; tw2 15:34 Follow up: Response: No adverse reaction tw2 Intake: 14:27 IV: 1000ml; Total: 1000ml. tw2 Outcome: 15:35 Discharge ordered by . pm1 15:54 Discharged to home ambulatory, with family. tw2 15:54 Condition: stable 15:54 Discharge instructions given to patient, family, Instructed on discharge instructions, follow up and referral plans. medication usage, Demonstrated understanding of instructions, follow-up care, medications, Prescriptions given X 1. 15:55 Patient left the ED. tw2 Signatures: Angelina Hernandez RN RN aj1 John Leon NP FINANCIAL DEVELOPER pm1 Adriana Wilcox RN RN tw2 Lissy Robbins sb2 Corrections: (The following items were deleted from the chart) 15:35 15:22 BP 86 / 71; Pulse 99bpm; Resp 17bpm; Pulse Ox 100% RA; tw2 tw2
--- NOTE | 2018-05-31 15:36 | EDPHYS ---
Physician Documentation [facility] Name: Chitra Ramírez Age: 23 yrs Sex: Female : 1995 Arrival Date: 05/31/2018 Time: 12:27 Bed 23 Private MD: None, None ED Physician Boni Martinez HPI: 05/31 14:30 This 23 yrs old Female presents to ER via Ambulatory with complaints of pm1 Nausea/Vomiting - 18 WK PG. 14:30 The patient presents to the emergency department with nausea, vomiting, 3 times since pm1 the onset of symptoms, diarrhea, with each meal. Onset: The symptoms/episode began/occurred 2 day(s) ago. Possible causes: sick contacts, by family, 2 children and have diarrhea and vomiting. The symptoms are aggravated by food , The symptoms are alleviated by nothing. Associated signs and symptoms: Pertinent positives: diarrhea, nausea, vomiting, Pertinent negatives: dysuria, fever. Severity of symptoms: in the emergency department the symptoms have improved. The patient has not experienced similar symptoms in the past. The patient has not recently seen a physician, contacted PAPER BUNDLER over the phone and was given permission to take Lomotil as needed. 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 - Social history:: Smoking status: Patient/guardian denies using tobacco. - Ebola Screening: : Patient denies travel to an Ebola-affected area in the 21 days before illness onset. ROS: 14:30 Constitutional: Negative for fever, chills, and weight loss, Eyes: Negative for injury, pm1 pain, redness, and discharge, ENT: Negative for injury, pain, and discharge, Neck: Negative for injury, pain, and swelling, Cardiovascular: Negative for chest pain, palpitations, and edema, Respiratory: Negative for shortness of breath, cough, wheezing, and pleuritic chest pain. 14:30 Back: Negative for injury and pain, : Negative for injury, bleeding, discharge, and swelling, MS/Extremity: Negative for injury and deformity, Skin: Negative for injury, rash, and discoloration, Neuro: Negative for headache, weakness, numbness, tingling, and seizure. 14:30 Abdomen/GI: Positive for nausea, vomiting, and diarrhea, Negative for hematemesis, black/tarry stool, rectal bleeding. Exam: 14:30 Constitutional: This is a well developed, well nourished patient who is awake, alert, pm1 and in no acute distress. Head/Face: Normocephalic, atraumatic. Eyes: Pupils equal round and reactive to light, extra-ocular motions intact. Lids and lashes normal. Conjunctiva and sclera are non-icteric and not injected. Cornea within normal limits. Periorbital areas with no swelling, redness, or edema. ENT: Nares patent. No nasal discharge, no septal abnormalities noted. Tympanic membranes are normal and external auditory canals are clear. Oropharynx with no redness, swelling, or masses, exudates, or evidence of obstruction, uvula midline. Mucous membranes moist. Neck: Trachea midline, no thyromegaly or masses palpated, and no cervical lymphadenopathy. Supple, full range of motion without nuchal rigidity, or vertebral point tenderness. No Meningismus. Chest/axilla: Normal chest wall appearance and motion. Nontender with no deformity. No lesions are appreciated. Cardiovascular: Regular rate and rhythm with a normal S1 and S2. No gallops, murmurs, or rubs. Normal PMI, no JVD. No pulse deficits. Respiratory: Lungs have equal breath sounds bilaterally, clear to auscultation and percussion. No rales, rhonchi or wheezes noted. No increased work of breathing, no retractions or nasal flaring. Abdomen/GI: Soft, non-tender, with normal bowel sounds. No distension or tympany. No guarding or rebound. No evidence of tenderness throughout. Back: No spinal tenderness. No costovertebral tenderness. Full range of motion. Skin: Warm, dry with normal turgor. Normal color with no rashes, no lesions, and no evidence of cellulitis. MS/ Extremity: Pulses equal, no cyanosis. Neurovascular intact. Full, normal range of motion. 14:30 Neuro: Orientation: is normal, Motor: is normal, moves all fours, Sensation: is normal, no obvious gross deficits. Vital Signs: 12:35 BP 123 / 77; Pulse 108; Resp 20; Temp 97.2; Pulse Ox 98% on R/A; Weight 90.72 kg (R); aj1 Height 5 ft. 6 in. (167.64 cm); Pain 2/10; 14:27 BP 114 / 68; Pulse 84; Resp 17; Pulse Ox 100% on R/A; tw2 15:34 BP 101 / 68; Pulse 97; Resp 17; Pulse Ox 100% on R/A; tw2 12:35 Body Mass Index 32.28 (90.72 kg, 167.64 cm) aj1 MDM: 12:59 Patient medically screened. pm1 15:34 Data reviewed: vital signs. Data interpreted: Pulse oximetry: on room air is 100 %. pm1 Interpretation: normal. Counseling: I had a detailed discussion with the patient and/or guardian regarding: the historical points, exam findings, and any diagnostic results supporting the discharge/admit diagnosis, lab results, the need for outpatient follow up, to return to the emergency department if symptoms worsen or persist or if there are any questions or concerns that arise at home. 05/31 13:05 Order name: CBC with Diff pm1 05/31 13:05 Order name: BMP; Complete Time: 14:51 pm1 05/31 13:05 Order name: Urine Microscopic Only; Complete Time: 15:32 pm1 05/31 13:06 Order name: CBC with Automated Diff; Complete Time: 14:51 EDMS 05/31 15:36 Order name: Urine Dipstick--Ancillary (enter results) eb 05/31 15:36 Order name: Urine --Ancillary (enter results) eb 05/31 13:05 Order name: Urine Dipstick-Ancillary (obtain specimen); Complete Time: 14:51 pm1 05/31 13:05 Order name: IV Saline Lock; Complete Time: 13:08 pm1 05/31 13:06 Order name: Heart Tones; Complete Time: 13:33 pm1 Administered Medications: 13:19 Drug: NS 0.9% 1000 ml Route: IV; Rate: 1000 ml; Site: right antecubital; tw2 14:27 Follow up: Response: No adverse reaction; IV Status: Completed infusion; IV Intake: tw2 1000ml 14:11 Drug: Zofran 4 mg Route: IVP; Site: right antecubital; tw2 14:52 Follow up: Response: No adverse reaction; Nausea is decreased tw2 15:05 Drug: Potassium Effervescent Tablet 50 mEq Route: PO; tw2 15:34 Follow up: Response: No adverse reaction tw2 Disposition: 17:48 Co-signature as Attending Physician, Boni Martinez MD. rn Disposition: 05/31/18 15:35 Discharged to Home. Impression: Diarrhea, unspecified, Nausea and vomiting. - Condition is Stable. - Discharge Instructions: Food Choices to Help Relieve Diarrhea, Adult, Diarrhea, Adult, Nausea and Vomiting, Adult, Viral Gastroenteritis, Adult. - Prescriptions for Zofran 4 mg Oral Tablet - take 1 tablet by ORAL route every 8 hours As needed; 20 tablet. - Medication Reconciliation Form, Thank You Letter form. - Follow up: Emergency Department; When: As needed; Reason: Worsening of condition. Follow up: Private Physician; When: 2 - 3 days; Reason: Recheck today's complaints, Continuance of care, Re-evaluation by your physician. - Problem is new. - Symptoms have improved. Signatures: Dispatcher [employer] EDMS Angelina Hernandez RN RN aj1 Boni Martinez MD MD rn Marinas, Patrick, P[employer] WEED COOKING OPERATOR pm1 Adriana Wilcox RN RN tw2 Corrections: (The following items were deleted from the chart) 15:55 15:35 05/31/2018 15:35 Discharged to Home. Impression: Diarrhea, unspecified; Nausea tw2 and vomiting. Condition is Stable. Forms are Medication Reconciliation Form, Thank You Letter, Antibiotic Education, Prescription Opioid Use. Follow up: Emergency Department; When: As needed; Reason: Worsening of condition. Follow up: Private Physician; When: 2 - 3 days; Reason: Recheck today's complaints, Continuance of care, Re-evaluation by your physician. Problem is new. Symptoms have improved. pm1
[2018-05-31 16:56] LABS: Urine Blood NEGATIVE (NEG); Urine Glucose NEGATIVE (NEG); Urine Protein NEGATIVE (NEG)
== END 2018-05-31 15:55 | disposition home or self-care (01) ==
LOC: ER 12:24
DX: R19.7 Diarrhea, unspecified (principal); R11.2 Nausea with vomiting, unspecified
CPT/HCPCS: 36415; 80048; 81003; 81015; 81025; 85025; 96361; 96374; 99284; J2405; J7030